=== PATIENT | female | born 1925 | race Caucasian/White ===

== ENCOUNTER → 2017-07-19 17:41 | Outpatient (CLI) | payer MEDICARE, BC ==
[2013-10-12 11:06] VITALS: BMI 23.5
[~2017-07-19 17:41] MED LIST: GLUCOPHAGE500 MG PO; INDERAL10 MG PO
== END | disposition home or self-care (01) ==
LOC: D.MAMMO 05-12 09:45
DX: Z12.31 Encounter for screening mammogram for malignant neoplasm of breast (principal)